=== PATIENT | female | born 1995 | race African-American/Black ===

== ENCOUNTER 2021-06-08 10:54 | Day surgery (SDC) | payer MEDICAID ==
[~2021-06-08] VITALS: Ht 165.1 cm; Wt 110.3 kg
[2021-06-08 12:12] LABS: BASO % 0.4 % (0.0-2.0); EOS # 0.1 (0.0-0.7); EOS % 1.6 % (0-4.0); GRAN # 4.5 (1.4-6.5); GRAN % 65.1 % (42.2-75.2); HEMATOCRIT 40.4 % (37.0-47.0); HEMOGLOBIN 13.6 g/dl (12.5-16.0); LYMPH # 1.9 (1.2-3.4); LYMPH % 28.1 % (20.0-51.0); MEAN CELL VOLUME 91 fl (80.0-100.0); MEAN CORPUSCULAR HEMOGLOBIN 31 pg (27.0-31.0); MEAN CORPUSCULAR HGB CONC 34 g/dl (33.0-37.0); MEAN PLATELET VOLUME 9.7 fl (7.4-10.4); MONO # 0.3 (0.1-0.6); MONO % 4.7 % (1.7-9.3); PLATELET COUNT 323 K/mm3 (130-400); RED BLOOD COUNT 4.42 M/mm3 (4.10-5.30); REDCELL DISTRIBUTION WIDTH-CV 13.3 % (11.5-14.5)
[2021-06-08 12:37] VITALS: BP 121/82; PULSE 74; TEMP 98
[2021-06-08 12:55] LABS: ALBUMIN 3.8 gm/dL (3.5-5.0); BILIRUBIN,TOTAL 0.3 mg/dL (0.0-1.0); CALCIUM 8.5 mg/dL (8.4-10.2); CREATININE, serum 0.75 (0.52-1.25); POTASSIUM 3.9 mmol/L (3.4-5.0); TOTAL PROTEIN 6.2 gm/dL (6.4-8.2)
[2021-06-08] MEDS ORDERED: MOTRIN 600600 MG/TAB PO (14:33)
[2021-06-08] MEDS ORDERED: NORCO 325 MG-51 TAB PO (14:33)
[2021-06-08 14:50] VITALS: BP 103/56; PULSE 79; TEMP 97.5
[2021-06-08 15:10] VITALS: BP 103/61; PULSE 69
[2021-06-08 15:25] VITALS: BP 95/60; PULSE 75
[2021-06-08 15:55] VITALS: BP 92/54; PULSE 73
--- NOTE | 2021-06-08 16:03 | NUR ---
PT RETURNED FROM PACU. ALERT AND SLEEPY. C/O EPIGASTRIC GAS PAIN. PT DENIES WANTING ANYTHING TO EAT AT THIS TIME. LUNGS CLEAR, HRR, BOWEL SOUNDS HYPOACTIVE. IV PATENT. SIDE RAILS UP. CALL LIGHT IN REACH. FRIEND, MAVERICK AT BEDSIDE.
--- NOTE | 2021-06-08 16:06 | NUR ---
PT STILL C/O EPIGASTRIC GAS PAIN. RATES PAIN AT A 3 ON A 0-10 SCALE. UP TO BATHROOM AND VOIDED WITHOUT DIFFICUTLY. PT STATED, 'I FEEL BETTER STANDING UP'. PT SITTING UP IN RECLINING CHAIR. PT OFFERED SALTINE CRACKERS AND SPRITE. PT TOLERATING PO'S WELL WITHOUT NAUSEA OR VOMITING. WILL CONT TO MONITOR.
--- NOTE | 2021-06-08 16:11 | NUR ---
PT WAS GIVEN NORCO PER PRN ORDERS. PT CONTINUES TO TAKE PO'S WELL.
--- NOTE | 2021-06-08 16:13 | NUR ---
PT TOLERATING FODD AND FLUIDS WITHOUT DIFFICULTY. PT IV WAS DC'D, PT TOLERATED WELL. PT SIGNED DISCHARGE PAPERS. QUESTIONS ANSWERED. PT WAS TAKEN OUT THROUGH THE PATIENT ENTRANCE, FRIEND, MAVERICK IS DRIVING.
== END 2021-06-08 16:00 | disposition home or self-care (01) ==
LOC: SDCO 10:54
PROVIDERS: Surgery
DX: K80.10 Calculus of gallbladder with chronic cholecystitis without obstruction (principal); F32.9 Major depressive disorder, single episode, unspecified; Z20.822 Contact with and (suspected) exposure to COVID-19; Z87.891 Personal history of nicotine dependence; Z79.899 Other long term (current) drug therapy
CPT/HCPCS: J0690; J1100; J1885; J2405; J2704; J3010; J7120

== ENCOUNTER 2024-03-05 20:35 | Emergency (ER) | payer MEDICAID ==
[~2024-03-05] VITALS: Ht 165.2 cm; Wt 123.2 kg
[~2024-03-05 20:35] MED LIST: MOTRIN 600600 MG/TAB PO; NORCO 325 MG-51 TAB PO
[2024-03-05] MEDS ORDERED: LR 1,000 ML IV ONE (21:00)
[2024-03-05] MEDS ORDERED: Morphine 4 MG/ML VIAL IV ONE (21:00)
[2024-03-05] MEDS ORDERED: Ondansetron 4 MG/2 ML VIAL IV ONE (21:00)
[2024-03-05 21:28] LABS: BASO # 0.1 K/mm3 (0.0-0.2); BASO % 0.6 % (0.0-2.0); EOS # 0.4 K/mm3 (0.0-0.7); EOS % 4.3 % (0.0-4.0); GRAN # 6.5 K/mm3 (1.4-6.5); GRAN % 63.8 % (42.2-75.2); HEMATOCRIT 42.2 % (37.0-47.0); HEMOGLOBIN 14.7 g/dl (12.5-16.0); LYMPH # 2.8 K/mm3 (1.2-3.4); LYMPH % 27.7 % (20.0-51.0); MEAN CELL VOLUME 92 fl (80.0-100.0); MEAN CORPUSCULAR HEMOGLOBIN 32 pg (27-31); MEAN CORPUSCULAR HGB CONC 35 g/dl (33.0-37.0); MEAN PLATELET VOLUME 9.7 fl (7.4-10.4); MONO # 0.3 K/mm3 (0.1-0.6); MONO % 3.3 % (1.7-9.3); PLATELET COUNT 368 K/mm3 (130-400); RED BLOOD COUNT 4.59 M/mm3 (4.10-5.30); REDCELL DISTRIBUTION WIDTH-CV 13.3 % (11.5-14.5)
[2024-03-05 21:30] LABS: ALBUMIN 3.8 g/dL (3.5-5.0); BILIRUBIN,TOTAL 0.1 mg/dL (0.2-1.2); C-REACTIVE PROTEIN 0.63 mg/dL (0.00-0.50); CALCIUM 9.6 mg/dL (8.4-10.2); CREATININE, serum 0.86 mg/dL (0.57-1.11); POTASSIUM 4.1 mEq/L (3.5-4.5); TOTAL PROTEIN 7.5 g/dl (6.2-8.1)
[2024-03-05 22:05] LABS: COLLECTION METHOD CLEAN CATCH
[2024-03-05 22:24] LABS: URINE APPEARANCE CLEAR (CLEAR/HAZY); URINE BLOOD NEGATIVE (NEGATIVE); URINE COLOR YELLOW (YELLOW); URINE GLUCOSE NEGATIVE (NEGATIVE); URINE KETONE NEGATIVE (NEGATIVE); URINE NITRATE NEGATIVE (NEGATIVE); URINE PROTEIN(semi-quant) NEGATIVE (NEGATIVE)
[2024-03-05] MEDS ORDERED: Iohexol 300 - 100 ML VIAL IV ONE (22:33)
[2024-03-05] MEDS ORDERED: NS 50 ML IV SCH (22:33)
[2024-03-05] MEDS ORDERED: Home HYDROcodone/Acetaminophen 5/325 MG #4 TABS/PACK PO ONE (23:00)
[2024-03-05 23:25] VITALS: BP 129/70; PULSE 78; TEMP 97.7
== END 2024-03-05 23:36 | disposition home or self-care (01) ==
LOC: COL.ER 20:35
PROVIDERS: Family Medicine
DX: R10.32 Left lower quadrant pain (principal); F17.210 Nicotine dependence, cigarettes, uncomplicated; Z90.49 Acquired absence of other specified parts of digestive tract
CPT/HCPCS: J2270; J2405; J7120; Q9967